=== PATIENT | male | born 1950 | race Caucasian/White ===

== ENCOUNTER 2022-07-11 11:34 | Emergency (ER) | payer OTHER, MEDICARE, BC ==
[~2022-07-11] VITALS: Ht 185.4 cm; Wt 85.9 kg
[2022-07-11] MEDS ORDERED: TETanus/Pertussis (Acell)/Diphther VAC/PF (Tdap-Adult) 0.5ml syringe IMVAC ONE (12:30)
[2022-07-11] MEDS ORDERED: LIDOCAINE 1%/EPI 1:100,000 inj. 10 ML multi-dose vial IJ ONE (12:43)
[2022-07-11 12:56] VITALS: BP 159/86
[2022-07-11] MEDS ORDERED: DOXY-1 PO (13:16)
[2022-07-11] MEDS ORDERED: DOXYCYCLINE 100MG CAPSULE PO STA (13:16)
== END 2022-07-11 13:28 | disposition home or self-care (01) ==
LOC: ER 11:34
DX: S01.91XA Laceration without foreign body of unspecified part of head, initial encounter (principal); I10 Essential (primary) hypertension; W19.XXXA Unspecified fall, initial encounter; Y93.89 Activity, other specified; Y92.89 Other specified places as the place of occurrence of the external cause; Y99.8 Other external cause status
CPT/HCPCS: 12004; 70450; 90471; 90715; 99284; J3490